=== PATIENT | female | born 1965 | race Caucasian/White ===

== ENCOUNTER 2019-10-14 10:05 | Inpatient (IN) | payer OTHER ==
--- NOTE | 2019-10-14 10:41 | ED ---
General Adult HPI - General Chief complaint: Recheck/Abnormal Lab/Rx Stated complaint: pt states water around heart Time Seen by Provider: 10/14/19 10:26 Source: patient, family, RN notes reviewed Mode of arrival: ambulatory Limitations: no limitations - History of Present Illness Initial comments: Patient is a pleasant 54-year-old female presenting to the emergency department after being advised by her doctor. Patient states she was at her doctor's office and they did an ultrasound of her heart. There was some evidence of fluid around her heart and patient was advised to come to the emergency department. Patient states she has had some mild dyspnea over the past couple of weeks. Patient states it has been very mild and seems to actually be somewhat improving. Patient does have some mild cold symptoms including cough congestion and scratchy throat. Cold symptoms just started yesterday. has similar symptoms. Patient did also have a cold a few months ago. Patient denies any chest discomfort. No leg pain or leg swelling. - Related Data Home Medications Medication Instructions Recorded Confirmed Ibuprofen [Motrin Ib] 400 mg PO Q6H PRN 10/14/19 10/14/19 Allergies Allergy/AdvReac Type Severity Reaction Status Date / Time No Known Allergies Allergy Verified 10/14/19 11:27 Review of Systems ROS Statement: Those systems with pertinent positive or pertinent negative responses have been documented in the HPI. ROS Other: All systems not noted in ROS Statement are negative. Constitutional: Denies: fever, chills Eyes: Denies: eye pain ENT: Reports: as per HPI Respiratory: Reports: as per HPI Cardiovascular: Denies: chest pain Endocrine: Denies: fatigue Gastrointestinal: Denies: abdominal pain Genitourinary: Denies: dysuria Musculoskeletal: Denies: back pain Skin: Denies: rash Neurological: Denies: weakness Past Medical History Past Medical History: No Reported History History of Any Multi-Drug Resistant Organisms: None Reported Past Surgical History: Tonsillectomy Past Psychological History: Depression Smoking Status: Current every day smoker Past Alcohol Use History: None Reported Past Drug Use History: None Reported General Exam Limitations: no limitations General appearance: alert, in no apparent distress Head exam: Present: normocephalic Eye exam: Present: normal appearance, PERRL ENT exam: Present: normal oropharynx Neck exam: Present: normal inspection Respiratory exam: Present: normal lung sounds bilaterally Cardiovascular Exam: Present: regular rate, normal rhythm, normal heart sounds Expanded Peripheral pulses: 2+: Radial (R), Radial (L), Dorsalis Pedis (R), Dorsalis Pedis (L) GI/Abdominal exam: Present: soft. Absent: tenderness Extremities exam: Present: normal inspection. Absent: pedal edema, calf tenderness Neurological exam: Present: alert Psychiatric exam: Present: normal affect, normal mood Skin exam: Present: normal color Course Vital Signs 10/14/19 10:17 Temperature 97.9 F Pulse Rate 105 H Respiratory 20 Rate Blood Pressure 121/83 O2 Sat by Pulse 96 Oximetry EKG Findings - EKG Comments: EKG Findings:: sinus tachycardia at 102. Premature atrial complex. TN 162. QRS 64. QT 308. QTC 401. Normal axis. Low qrs voltage. Nonspecific T waves. Medical Decision Making - Medical Decision Making patient reevaluated and updated. Dr. Flores has been paged for admission. Consult will be placed for cardiology and formal echo will be ordered. - Lab Data Result diagrams: 10/14/19 10:48 10/14/19 10:48 Lab Results 10/14/19 10/14/19 10/14/19 Range/Units 10:48 10:48 10:48 WBC 10.8 H (3.8-10.6) k/uL RBC 4.53 (3.80-5.40) m/uL Hgb 13.1 (11.4-16.0) gm/dL Hct 39.5 (34.0-46.0) % MCV 87.2 (80.0-100.0) fL MCH 28.9 (25.0-35.0) pg MCHC 33.2 (31.0-37.0) g/dL RDW 13.8 (11.5-15.5) % Plt Count 384 (150-450) k/uL Neutrophils % 83 % Lymphocytes % 11 % Monocytes % 4 % Eosinophils % 1 % Basophils % 0 % Neutrophils # 8.9 H (1.3-7.7) k/uL Lymphocytes # 1.2 (1.0-4.8) k/uL Monocytes # 0.5 (0-1.0) k/uL Eosinophils # 0.1 (0-0.7) k/uL Basophils # 0.0 (0-0.2) k/uL PT (9.0-12.0) sec INR (<1.2) APTT (22.0-30.0) sec Sodium 139 (137-145) mmol/L Potassium 3.9 (3.5-5.1) mmol/L Chloride 104 (98-107) mmol/L Carbon Dioxide 27 (22-30) mmol/L Anion Gap 8 mmol/L BUN 9 (7-17) mg/dL Creatinine 0.65 (0.52-1.04) mg/dL Est GFR (CKD-EPI)AfAm >90 (>60 ml/min/1.73 sqM) Est GFR (CKD-EPI)NonAf >90 (>60 ml/min/1.73 sqM) Glucose 123 H (74-99) mg/dL Calcium 9.4 (8.4-10.2) mg/dL Total Bilirubin 1.3 (0.2-1.3) mg/dL AST 20 (14-36) U/L ALT 17 (4-34) U/L Alkaline Phosphatase 116 (38-126) U/L Creatine Kinase 57 (30-135) U/L CK-MB (CK-2) 0.4 (0.0-2.4) ng/mL Troponin I <0.012 (0.000-0.034) ng/mL NT-Pro-B Natriuret Pep pg/mL Total Protein 6.6 (6.3-8.2) g/dL Albumin 3.9 (3.5-5.0) g/dL TSH 8.820 H (0.465-4.680) mIU/L Free T4 0.87 (0.78-2.19) ng/dL Free T3 pg/mL 3.0 (2.8-5.3) pg/ml 10/14/19 10/14/19 Range/Units 10:48 10:48 WBC (3.8-10.6) k/uL RBC (3.80-5.40) m/uL Hgb (11.4-16.0) gm/dL Hct (34.0-46.0) % MCV (80.0-100.0) fL MCH (25.0-35.0) pg MCHC (31.0-37.0) g/dL RDW (11.5-15.5) % Plt Count (150-450) k/uL Neutrophils % % Lymphocytes % % Monocytes % % Eosinophils % % Basophils % % Neutrophils # (1.3-7.7) k/uL Lymphocytes # (1.0-4.8) k/uL Monocytes # (0-1.0) k/uL Eosinophils # (0-0.7) k/uL Basophils # (0-0.2) k/uL PT 11.4 (9.0-12.0) sec INR 1.1 (<1.2) APTT 27.1 (22.0-30.0) sec Sodium (137-145) mmol/L Potassium (3.5-5.1) mmol/L Chloride (98-107) mmol/L Carbon Dioxide (22-30) mmol/L Anion Gap mmol/L BUN (7-17) mg/dL Creatinine (0.52-1.04) mg/dL Est GFR (CKD-EPI)AfAm (>60 ml/min/1.73 sqM) Est GFR (CKD-EPI)NonAf (>60 ml/min/1.73 sqM) Glucose (74-99) mg/dL Calcium (8.4-10.2) mg/dL Total Bilirubin (0.2-1.3) mg/dL AST (14-36) U/L ALT (4-34) U/L Alkaline Phosphatase (38-126) U/L Creatine Kinase (30-135) U/L CK-MB (CK-2) (0.0-2.4) ng/mL Troponin I (0.000-0.034) ng/mL NT-Pro-B Natriuret Pep 432 pg/mL Total Protein (6.3-8.2) g/dL Albumin (3.5-5.0) g/dL TSH (0.465-4.680) mIU/L Free T4 (0.78-2.19) ng/dL Free T3 pg/mL (2.8-5.3) pg/ml - Radiology Data Radiology results: image reviewed (chest x-ray shows cardiomegaly) Disposition Clinical Impression: Pericardial effusion Disposition: ADMITTED IP TO THIS HOSP Is patient prescribed a controlled substance at d/c from ED?: No Referrals: [facility],Clinic [Primary Care Provider] - 1-2 days Decision Time: 12:33
[2019-10-14 11:21] LABS: Basophils % (A) 0 %; Eosinophils # (A) 0.1 k/uL (0-0.7); Eosinophils % (A) 1 %; HCT 39.5 % (34.0-46.0); HGB 13.1 gm/dL (11.4-16.0); Lymphocytes # (A) 1.2 k/uL (1.0-4.8); Lymphocytes % (A) 11 %; MCH 28.9 pg (25.0-35.0); MCHC 33.2 g/dL (31.0-37.0); MCV 87.2 fL (80.0-100.0); Mean Platelet Volume 7.6; Monocytes # (A) 0.5 k/uL (0-1.0); Monocytes % (A) 4 %; Neutrophils # (A) 8.9 k/uL (1.3-7.7); Neutrophils % (A) 83 %; Platelet Count 384 k/uL (150-450); RBC 4.53 m/uL (3.80-5.40); RDW 13.8 % (11.5-15.5); WBC 10.8 k/uL (3.8-10.6)
--- NOTE | 2019-10-14 11:23 | XR ---
EXAMINATION TYPE: XR chest 2V DATE OF EXAM: 10/14/2019 COMPARISON: None INDICATION: Fluid around the heart TECHNIQUE: Frontal and lateral views of the chest are obtained. FINDINGS: The heart size is mildly prominent. Some pericardial effusion could be considered.. The pulmonary vasculature is normal. The lungs are clear. IMPRESSION: 1. Mild cardiomegaly. Pericardial effusion can have this appearance.
[2019-10-14 11:31] LABS: INR 1.1 (<1.2); Partial Thromboplastin Time 27.1 sec (22.0-30.0); Prothrombin Time 11.4 sec (9.0-12.0)
[2019-10-14 11:44] LABS: ALT 17 U/L (4-34); AST 20 U/L (14-36); African American GFR (CKD) >90 (>60 ml/min/1.73 sqM); Albumin 3.9 g/dL (3.5-5.0); Alkaline Phosphatase 116 U/L (38-126); Anion Gap 8 mmol/L; Blood Urea Nitrogen 9 mg/dL (7-17); Calcium 9.4 mg/dL (8.4-10.2); Carbon Dioxide 27 mmol/L (22-30); Chloride 104 mmol/L (98-107); Creatine Kinase 57 U/L (30-135); Glucose 123 mg/dL (74-99); Non-African American GFR(CKD) >90 (>60 ml/min/1.73 sqM); Potassium 3.9 mmol/L (3.5-5.1); Sodium 139 mmol/L (137-145); Total Bilirubin 1.3 mg/dL (0.2-1.3); Total Protein 6.6 g/dL (6.3-8.2)
[2019-10-14 12:01] LABS: T4, Free (Free Thyroxine) 0.87 ng/dL (0.78-2.19)
[2019-10-14 12:04] LABS: Creatine Kinase MB 0.4 ng/mL (0.0-2.4); Troponin I <0.012 ng/mL (0.000-0.034)
[2019-10-14] MEDS ORDERED: ASPIRIN 325 MG TAB PO ONE (13:00)
[2019-10-14] MEDS ORDERED: IOPAMIDOL CONTRAST (ORAL USE) VIAL PO PRN (14:53)
--- NOTE | 2019-10-14 14:53 | ECHOF ---
Referral Reason: MEASUREMENTS -------- HEIGHT: 172.7 cm WEIGHT: 102.1 kg BP: RVIDd: 2.7 cm (< 3.3) IVSd: 1.1 cm (0.6 - 1.1) LVIDd: 3.3 cm (3.9 - 5.3) LVPWd: 1.1 cm (0.6 - 1.1) IVSs: 1.7 cm LVIDs: 2.3 cm LVPWs: 1.8 cm Ao Diam: 3.0 cm (2.0 - 3.7) AV Cusp: 2.0 cm (1.5 - 2.6) LA Diam: 3.5 cm (2.7 - 3.8) MV EXCURSION: 12.885 mm (> 18.000) MV EF SLOPE: 70 mm/s (70 - 150) EPSS: 0.6 cm MV E Mark: 0.52 m/s MV DecT: 161 ms MV A Mark: 0.74 m/s MV E/A Ratio: 0.71 RAP: 5.00 mmHg RVSP: 12.99 mmHg FINDINGS -------- Sinus rhythm. This was a technically difficult study with suboptimal views. The left ventricular size is normal. There is mild concentric left ventricular hypertrophy. Overa ll left ventricular systolic function is normal with, an EF between 55 - 60 %. The right ventricle is normal in size. The left atrial size is normal. The right atrial size is normal. Lumason used The aortic valve is trileaflet and appears structurally normal. The mitral valve is normal. There is trace mitral regurgitation. The tricuspid valve appears structurally normal. Trace tricuspid regurgitation present. Right fabricio tricular systolic pressure is normal at < 35 mmHg. There is no pulmonic regurgitation present. The aortic root size is normal. Normal inferior vena cava with normal inspiratory collapse consistent with estimated right atrial pre ssure of 5 mmHg. Large global pericardial effusion CONCLUSIONS -------- 1. Sinus rhythm. 2. This was a technically difficult study with suboptimal views. 3. The left ventricular size is normal. 4. There is mild concentric left ventricular hypertrophy. 5. Overall left ventricular systolic function is normal with, an EF between 55 - 60 %. 6. The right ventricle is normal in size. 7. The left atrial size is normal. 8. The right atrial size is normal. 9. Lumason used 10. The aortic valve is trileaflet and appears structurally normal. 11. The mitral valve is normal. 12. There is trace mitral regurgitation. 13. The tricuspid valve appears structurally normal. 14. Trace tricuspid regurgitation present. 15. Right ventricular systolic pressure is normal at < 35 mmHg. 16. There is no pulmonic regurgitation present. 17. The aortic root size is normal. 18. Normal inferior vena cava with normal inspiratory collapse consistent with estimated right atrial pressure of 5 mmHg. 19. Large global pericardial effusion MILLING MACHINIST: Melody Escobar RDCS
--- NOTE | 2019-10-14 14:58 | P.CRDCN ---
History of Present Illness Consult date: 10/14/19 Reason for Consult (text): Pericardial effusion Chief complaint: Pericardial effusion History of present illness: To 54-year-old female who has not followed with any primary care doctor in over 15 years, she does smoke cigarettes, up to 2 packs of cigarettes per day, rarely drinks alcohol, she is quite anxious and does have history of panic attacks, denies any hypertension, no diabetes, no hyperlipidemia that she knows of. Patient has recently had some type of a viral illness where she's had frequent diarrhea stools and was complaining of some firmness in her abdomen. She denies any vomiting but has had fever and chills and symptoms of an upper respiratory infection. Associated with this she did have some mild shortness of breath which is why her physician recommended she undergo an echocardiogram with Doppler study as well as an EKG in the office. As an outpatient patient had an echo performed yesterday, she received a call at home that there was some fluid around her heart and she was advised to follow-up in 48 hours for a subsequent echo. The news that this made the patient extremely anxious and for this reason she came to the emergency room almost immediately for further evaluation. Chest x-ray on presentation here showed mild cardiomegaly, pericardial effusion can't have this appearance. Her EKG on presentation here showed a sinus tachycardia with PACs and nonspecific ST-T wave changes. White blood cell count 10.8, hemoglobin 13.1, platelet count 384. Sodium 139, potassium 3.9, BUN 9, creatinine 0.6. Troponin 0.012. BNP 432. TSH is 8.8, free T4 0.8 and free T3.0. blood pressure 120/80 with a heart rate of 105, 96% on room air. Temperature 97.9. At the time of our examination, patient actually feels quite well other than feeling extremely anxious. Any chest discomfort, no pain with deep breathing. Past Medical History Past Medical History: No Reported History History of Any Multi-Drug Resistant Organisms: None Reported Past Surgical History: Tonsillectomy Past Psychological History: Depression Smoking Status: Current every day smoker Past Alcohol Use History: None Reported Past Drug Use History: None Reported Medications and Allergies Home Medications Medication Instructions Recorded Confirmed Type Ibuprofen [Motrin Ib] 400 mg PO Q6H PRN 10/14/19 10/14/19 History Allergies Allergy/AdvReac Type Severity Reaction Status Date / Time No Known Allergies Allergy Verified 10/14/19 11:27 Physical Exam Vitals: Vital Signs Temp Pulse Resp BP Pulse Ox 10/14/19 10:17 97.9 F 105 H 20 121/83 96 Intake and Output 10/13/19 10/14/19 10/14/19 22:59 06:59 14:59 Other: Weight 102.058 kg PHYSICAL EXAMINATION: GENERAL: 54-year-old female in no acute distress at the time of my examination HEENT: Head is atraumatic, normocephalic. Pupils equal, round. Sclera anict jatin. Conjunctiva are clear. Mucous membranes of the mouth are moist. Neck is supple. There is no elevated jugular venous pressure. No Carotid bruit is heard. HEART EXAMINATION: Heart S1, S2 normal. No murmur or gallop heard. No pericardial rub heard CHEST EXAMINATION: Lungs are clear to auscultation and precussion. No chest wall tenderness is noted on palpation or with deep breathing. ABDOMEN: Soft, nontender. Bowel sounds are heard. No organomegaly noted. EXTREMITIES: 2+ peripheral pulses with no evidence of peripheral edema and no calf tenderness noted. NEUROLOGIC patient is awake, alert and oriented 3 . . Results 10/14/19 10:48 10/14/19 10:48 Cardiac Enzymes 10/14/19 10/14/19 Range/Units 10:48 10:48 AST 20 (14-36) U/L CK-MB (CK-2) 0.4 (0.0-2.4) ng/mL Troponin I <0.012 (0.000-0.034) ng/mL Coagulation 10/14/19 Range/Units 10:48 PT 11.4 (9.0-12.0) sec APTT 27.1 (22.0-30.0) sec CBC 10/14/19 Range/Units 10:48 WBC 10.8 H (3.8-10.6) k/uL RBC 4.53 (3.80-5.40) m/uL Hgb 13.1 (11.4-16.0) gm/dL Hct 39.5 (34.0-46.0) % Plt Count 384 (150-450) k/uL Comprehensive Metabolic Panel 10/14/19 Range/Units 10:48 Sodium 139 (137-145) mmol/L Potassium 3.9 (3.5-5.1) mmol/L Chloride 104 (98-107) mmol/L Carbon Dioxide 27 (22-30) mmol/L BUN 9 (7-17) mg/dL Creatinine 0.65 (0.52-1.04) mg/dL Glucose 123 H (74-99) mg/dL Calcium 9.4 (8.4-10.2) mg/dL AST 20 (14-36) U/L ALT 17 (4-34) U/L Alkaline Phosphatase 116 (38-126) U/L Total Protein 6.6 (6.3-8.2) g/dL Albumin 3.9 (3.5-5.0) g/dL Current Medications Generic Name Dose Route Start Last Admin Trade Name Freq PRN Reason Stop Dose Admin Aspirin 325 mg 10/15/19 09:00 Aspirin PO DAILY RUPINDER Intake and Output 10/13/19 10/14/19 10/14/19 22:59 06:59 14:59 Other: Weight 102.058 kg Patient Weight 10/15/19 06:59 Weight 102.058 kg 10/14/19 10:48 10/14/19 10:48 EKG Interpretations (text) EKG shows sinus tachycardia with occasional PAC. Assessment and Plan Plan: Assessment and plan #1 moderate to large pericardial effusion with no evidence of tamponade #2 nicotine dependence #3 recent GI and upper respiratory illness Plan Dr. Beckford did review the echocardiogram here which did reveal a moderate to large pericardial effusion. We will consult cardiothoracic surgery, request a CT of the chest and abdomen with contrast to rule out cancer, obtain CRP, sed rate, coxsackie virus, adenovirus, rheumatoid factor and ALMAS. Patient will be admitted to the cardiac unit. DNP note has been reviewed, I agree with a documented findings and plan of care. Patient was seen and examined.
--- NOTE | 2019-10-14 15:23 | P.HPIM ---
History of Present Illness Patient is a pleasant 54-year-old female with no significant past medical history came in as a PCP did an EKG which showed low-voltage curious compresses 6 because of which an ultrasound of the chest was done which showed pericardial effusion because of which patient was sent in here patient denied any shortness of breath denied any orthopnea proximal nocturnal dyspnea and doesn't have any JVD doesn't have any pedal edema. Patient was having symptoms of upper respiratory viral illness which started about a month ago followed by viral GI symptoms patient is still having symptoms of bronchitis patient does smoke 2 packs of cigarettes per day. She denied any abdominal pain or chest pain. still has low-voltage cares complexes on the EKG patient had an echocardiogram which showed moderate to large pericardial effusion and there are possible septations because of which there is concern of what malignancy although possibly is extremely low CT of the chest is being obtained because of that reason. Patient probably has medical effusion secondary to viral pericarditis. Patient will be started on nonsteroidal anti-intermittent is in colchicine with GI prophylaxis. Review of Systems REVIEW OF SYSTEMS: CONSTITUTIONAL: No fever, no malaise, no fatigue. HEENT: No recent visual problems or hearing problems. Does have symptoms of bronchitis with cough with clear sputum production CARDIOVASCULAR: No chest pain, orthopnea, PND, no palpitations, no syncope. PULMONARY: No shortness of breath, no cough, no hemoptysis. GASTROINTESTINAL: No diarrhea, no nausea, no vomiting, no abdominal pain. NEUROLOGICAL: No headaches, no weakness, no numbness. HEMATOLOGICAL: Denies any bleeding or petechiae. GENITOURINARY: Denies any burning micturition, frequency, or urgency. MUSCULOSKELETAL/RHEUMATOLOGICAL: Denies any joint pain, swelling, or any muscle pain. ENDOCRINE: Denies any polyuria or polydipsia. The rest of the 14-point review of systems is negative. Past Medical History Past Medical History: No Reported History History of Any Multi-Drug Resistant Organisms: None Reported Past Surgical History: Tonsillectomy Past Psychological History: Depression Smoking Status: Current every day smoker Past Alcohol Use History: None Reported Past Drug Use History: None Reported Medications and Allergies Home Medications Medication Instructions Recorded Confirmed Type Ibuprofen [Motrin Ib] 400 mg PO Q6H PRN 10/14/19 10/14/19 History Allergies Allergy/AdvReac Type Severity Reaction Status Date / Time No Known Allergies Allergy Verified 10/14/19 11:27 Physical Exam Vitals: Vital Signs Temp Pulse Resp BP Pulse Ox 10/14/19 14:00 80 18 123/92 10/14/19 13:00 80 18 108/83 97 10/14/19 12:03 80 18 97 10/14/19 10:17 97.9 F 105 H 20 121/83 96 Intake and Output 10/14/19 10/14/19 10/14/19 06:59 14:59 22:59 Other: Weight 102.058 kg PHYSICAL EXAMINATION: GENERAL: The patient is alert and oriented x3, not in any acute distress. Well developed, well nourished. HEENT: Pupils are round and equally reacting to light. EOMI. No scleral icterus. No conjunctival pallor. Normocephalic, atraumatic. No pharyngeal erythema. No thyromegaly. CARDIOVASCULAR: S1 and S2 present. No murmurs, rubs, or gallops. PULMONARY: Chest is clear to auscultation, no wheezing or crackles. ABDOMEN: Soft, nontender, nondistended, normoactive bowel sounds. No palpable organomegaly. MUSCULOSKELETAL: No joint swelling or deformity. EXTREMITIES: No cyanosis, clubbing, or pedal edema. NEUROLOGICAL: Gross neurological examination did not reveal any focal deficits. SKIN: No rashes. Results CBC & Chem 7: 10/14/19 10:48 10/14/19 10:48 Labs: Abnormal Lab Results - Last 24 Hours (Table) 10/14/19 10/14/19 Range/Units 10:48 10:48 WBC 10.8 H (3.8-10.6) k/uL Neutrophils # 8.9 H (1.3-7.7) k/uL Glucose 123 H (74-99) mg/dL TSH 8.820 H (0.465-4.680) mIU/L Assessment and Plan Plan: -Large regarding effusion: Most probably viral etiology but may need to rule out any malignancy in the chest with a CAT scan of the chest. Possibly of which is lower patient was started on nonsteroidal anti-inflammatory send the colchicine. Urology's for coxsackievirus is being sent and we're also obtaining CRP and ESR. -Nicotine dependence also was provided -Recent upper respiratory and GI illness. -Leukocytosis: Secondary to pericardial effusion and viral pericarditis -Sick euthyroid syndrome or subclinical hypothyroidism repeat TSH need to be obtained in about a month
[2019-10-14 15:49] LABS: C Reactive Protein 58.9 mg/L (<10.0)
--- NOTE | 2019-10-14 15:49 | P.GSCN ---
History of Present Illness Consult date: 10/14/19 Reason for Consult: Large pericardial effusion without tamponade physiology Requesting physician: Radha Beckford History of present illness: This is a 54-year-old active female patient who does not follow with a primary care physician on a regular basis. Her only known previous medical history is anxiety with panic attacks, tonsillectomy, and current tobacco dependence. Apparently she had what she describes as cold-type symptoms of cough, congestion, fever and chills, and shortness of breath recently. She started to feel better but then had GI type symptoms including abdominal pain and diarrhea. She did see a physician at the [facility], an echocardiogram was completed at the clinic due to the patient's shortness of breath, and the patient received a call yesterday stating there is fluid around her heart and she "should report to the emergency room in the next couple of days". While in the emergency room a transthoracic echocardiogram was completed demonstrating a large pericardial effusion with no tamponade physiology, ejection fraction 55-60%, trace mitral regurgitation and trace tricuspid regurgitation. Lab work was unremarkable except for white blood cell count 10.8 and TSH 8.820 with a free T4 0.87 and free T3 3.0. Chest x-ray was completed showing cardiomegaly. EKG showed sinus tach with heart rate 102, with low voltage. The patient was seen by cardiology and will be admitted for further workup. CT of the chest and abdomen have been ordered and are pending. Consultation was placed to cardiothoracic surgery for recommendations regarding pericardial effusion. Review of Systems Review of system was completed and was negative except as noted - Constitutional Reports chills, Reports fever - Cardiovascular Reports shortness of breath - Gastrointestinal Reports abdominal pain, Reports diarrhea, Reports excessive gas Past Medical History Past Medical History: No Reported History History of Any Multi-Drug Resistant Organisms: None Reported Past Surgical History: Tonsillectomy Past Psychological History: Anxiety, Depression Smoking Status: Current every day smoker Past Alcohol Use History: None Reported Past Drug Use History: None Reported Medications and Allergies Home Medications Medication Instructions Recorded Confirmed Type Ibuprofen [Motrin Ib] 400 mg PO Q6H PRN 10/14/19 10/14/19 History Allergies Allergy/AdvReac Type Severity Reaction Status Date / Time No Known Allergies Allergy Verified 10/14/19 11:27 Surgical - Exam Vital Signs Temp Pulse Resp BP Pulse Ox 97.9 F 105 H 20 121/83 96 10/14/19 10:17 10/14/19 10:17 10/14/19 10:17 10/14/19 10:17 10/14/19 10:17 - General well developed, well nourished, no distress, no pain, obese - Eyes PERRL, normal ocular movement - ENT no hearing loss - Neck no masses, no bruits, trachea midline - Respiratory Lungs sounds clear but diminished bilaterally. Respirations even, nonlabored. Currently on room air with oxygen saturation 97%. No chest wall deformities. No clubbing or cyanosis. - Cardiovascular S1, S2 present, no rub present, no distant heart tones noted. Regular rate and rhythm, sinus rhythm on telemetry. Palpable peripheral pulses bilaterally. No edema present. No calf pain or tenderness noted. - Abdomen Abdomen: soft, non tender, bowel sounds - Genitourinary Deferred - Rectum deferred - Integumentary no rash, no growths, no abnormal pigmentation - Neurologic normal coordination, normal sensation - Musculoskeletal normal gait, normal posture - Psychiatric Patient appears very anxious oriented to time, oriented to person, oriented to place, speech is normal, memory intact Results - Labs 10/14/19 10:48 10/14/19 10:48 Abnormal Lab Results - Last 24 Hours (Table) 10/14/19 10/14/19 Range/Units 10:48 10:48 WBC 10.8 H (3.8-10.6) k/uL Neutrophils # 8.9 H (1.3-7.7) k/uL Glucose 123 H (74-99) mg/dL TSH 8.820 H (0.465-4.680) mIU/L Diabetes panel 10/14/19 Range/Units 10:48 Sodium 139 (137-145) mmol/L Potassium 3.9 (3.5-5.1) mmol/L Chloride 104 (98-107) mmol/L Carbon Dioxide 27 (22-30) mmol/L BUN 9 (7-17) mg/dL Creatinine 0.65 (0.52-1.04) mg/dL Glucose 123 H (74-99) mg/dL Calcium 9.4 (8.4-10.2) mg/dL AST 20 (14-36) U/L ALT 17 (4-34) U/L Alkaline Phosphatase 116 (38-126) U/L Total Protein 6.6 (6.3-8.2) g/dL Albumin 3.9 (3.5-5.0) g/dL Thyroid panel 10/14/19 Range/Units 10:48 TSH 8.820 H (0.465-4.680) mIU/L Calcium panel 10/14/19 Range/Units 10:48 Calcium 9.4 (8.4-10.2) mg/dL Albumin 3.9 (3.5-5.0) g/dL Pituitary panel 10/14/19 Range/Units 10:48 Sodium 139 (137-145) mmol/L Potassium 3.9 (3.5-5.1) mmol/L Chloride 104 (98-107) mmol/L Carbon Dioxide 27 (22-30) mmol/L BUN 9 (7-17) mg/dL Creatinine 0.65 (0.52-1.04) mg/dL Glucose 123 H (74-99) mg/dL Calcium 9.4 (8.4-10.2) mg/dL TSH 8.820 H (0.465-4.680) mIU/L Adrenal panel 10/14/19 Range/Units 10:48 Sodium 139 (137-145) mmol/L Potassium 3.9 (3.5-5.1) mmol/L Chloride 104 (98-107) mmol/L Carbon Dioxide 27 (22-30) mmol/L BUN 9 (7-17) mg/dL Creatinine 0.65 (0.52-1.04) mg/dL Glucose 123 H (74-99) mg/dL Calcium 9.4 (8.4-10.2) mg/dL Total Bilirubin 1.3 (0.2-1.3) mg/dL AST 20 (14-36) U/L ALT 17 (4-34) U/L Alkaline Phosphatase 116 (38-126) U/L Total Protein 6.6 (6.3-8.2) g/dL Albumin 3.9 (3.5-5.0) g/dL - Imaging Chest x-ray: report reviewed, image reviewed EKG: image reviewed Additional studies: Echo report reviewed Assessment and Plan Assessment: 1. Large pericardial effusion 2. Current tobacco dependence 3. Anxiety 4. Recent upper respiratory symptoms as well as GI symptoms Plan: The patient was seen and examined in the emergency room. Chart/diagnostics were reviewed. The case will be discussed in detail with Dr. Miller. At this time the patient is completely stable, she has no tachycardia or hypotension, no distant heart tones. Her lab work is unremarkable. She denies any chest pain and states her shortness of breath has all but disappeared, she does not appear to be in any distress whatsoever. Await CT of chest and abdomen. Agree with initiation of ibuprofen and colchicine. More recommendations to follow once Dr. Miller has seen the patient. Thank you Dr. Beckford for this consult. We look forward to working with you in the care of your patient. Time with Patient: Greater than 30
[2019-10-14] MEDS: PANTOPRAZOLE 40 MG/10 ML VIAL IVP SCH (17:05)
[2019-10-14] MEDS: IBUPROFEN 600 MG TAB PO SCH ×2 (17:06→20:21)
[2019-10-14] MEDS: COLCHICINE 0.6 MG EACH PO SCH (20:21)
[2019-10-15 06:44] LABS: HCT 35.9 % (34.0-46.0); HGB 11.9 gm/dL (11.4-16.0); MCH 29.8 pg (25.0-35.0); MCHC 33.3 g/dL (31.0-37.0); MCV 89.4 fL (80.0-100.0); Mean Platelet Volume 7.2; Platelet Count 334 k/uL (150-450); RBC 4.01 m/uL (3.80-5.40); RDW 13.9 % (11.5-15.5); WBC 7.3 k/uL (3.8-10.6)
[2019-10-15 06:56] LABS: African American GFR (CKD) >90 (>60 ml/min/1.73 sqM); Anion Gap 5 mmol/L; Blood Urea Nitrogen 7 mg/dL (7-17); Calcium 8.9 mg/dL (8.4-10.2); Carbon Dioxide 28 mmol/L (22-30); Chloride 107 mmol/L (98-107); Cholesterol 115 mg/dL (<200); Glucose 102 mg/dL (74-99); HDL Cholesterol 29 mg/dL (40-60); LDL Cholesterol,Calculated 73 mg/dL (0-99); Non-African American GFR(CKD) >90 (>60 ml/min/1.73 sqM); Potassium 3.8 mmol/L (3.5-5.1); Sodium 140 mmol/L (137-145); Triglycerides 66 mg/dL (<150)
[2019-10-15] MEDS ORDERED: IOPAMIDOL CONTRAST (ORAL USE) VIAL PO PRN (08:00)
[2019-10-15] MEDS: IBUPROFEN 600 MG TAB PO SCH ×2 (08:10→15:23)
[2019-10-15] MEDS: COLCHICINE 0.6 MG EACH PO SCH (08:10)
[2019-10-15] MEDS: PANTOPRAZOLE 40 MG/10 ML VIAL IVP SCH (08:11)
[2019-10-15] MEDS ORDERED: ASPIRIN 325 MG TAB PO SCH (09:00)
--- NOTE | 2019-10-15 09:49 | P.PN ---
Subjective Progress Note Date: 10/15/19 Principal diagnosis: Large pericardial effusion. Past medical history significant for anxiety, current chronic tobacco dependence, recent upper torso respiratory symptoms as well as GI symptoms. This is a 54-year-old female patient who does not follow with her primary care physician on a regular basis. She presented to the emergency department yesterday after she received a call from her physician's office saying that her 2-D echocardiogram she underwent the day prior showed water around her heart. The patient is ambulating currently in her room on the cardiac stepdown unit, and she is in no acute distress. She remains hemodynamically stable and is on no inotropic or pressor support. Denies any complaints of pain or shortness of breath at this time. She is anxious to be discharged home. The patient is scheduled for a computed tomography scan of her chest, abdomen and pelvis this morning. She states that recently she has had flulike symptoms but had felt lik e she had recovered prior to being admitted to the hospital. Objective - Vital Signs Vital signs: Vital Signs Temp 98.2 F 10/15/19 04:00 Pulse 79 10/15/19 04:00 Resp 18 10/15/19 04:00 BP 106/59 10/15/19 04:00 Pulse Ox 91 L 10/15/19 04:00 Intake & Output 10/14/19 10/15/19 10/15/19 18:59 06:59 18:59 Intake Total 10 200 360 Balance 10 200 360 Weight 102.058 kg 103.4 kg Intake: IV 10 Invasive Line 1 10 Oral 200 360 Other: Voiding Method Toilet - Constitutional General appearance: Present: cooperative, no acute distress, obese - Neck Details: No JVD present. - Respiratory Details: Lung sounds are essentially clear throughout. Respirations are symmetrical and nonlabored. Oxygen saturation are 91% on room air. - Cardiovascular Details: Regular rhythm and rate. S1 and S2 present, negative for S3, gallop or murmur. Remote telemetry showing normal sinus rhythm heart rate 79. No edema present. - Gastrointestinal Gastrointestinal Comment(s): Abdomen is soft, nontender and nondistended. Active bowel sounds present all 4 abdominal quadrants. No organomegaly appreciated. - Integumentary Integumentary Comment(s): Skin is warm and dry. No clubbing or cyanosis is present. No rash, growth or abnormal pigmentation present. - Neurologic Neurologic: Present: CNII-XII intact - Musculoskeletal Musculoskeletal: Present: gait normal, strength equal bilaterally - Psychiatric Psychiatric: Present: A&O x's 3, appropriate affect, intact judgment & insight - Allied health notes Allied health notes reviewed: nursing - Labs CBC & Chem 7: 10/15/19 06:17 10/15/19 06:17 Labs: Abnormal Lab Results - Last 24 Hours (Table) 10/14/19 10/14/19 10/14/19 Range/Units 10:48 10:48 15:11 WBC 10.8 H (3.8-10.6) k/uL Neutrophils # 8.9 H (1.3-7.7) k/uL Glucose 123 H (74-99) mg/dL C-Reactive Protein 58.9 H (<10.0) mg/L HDL Cholesterol (40-60) mg/dL TSH 8.820 H (0.465-4.680) mIU/L 10/15/19 Range/Units 06:17 WBC (3.8-10.6) k/uL Neutrophils # (1.3-7.7) k/uL Glucose 102 H (74-99) mg/dL C-Reactive Protein (<10.0) mg/L HDL Cholesterol 29 L (40-60) mg/dL TSH (0.465-4.680) mIU/L Assessment and Plan Assessment: 1. Moderate to large pericardial effusion 2. Leukocytosis 3. Anxiety, with panic attacks 4. Recent upper respiratory symptoms as well as GI symptoms 5. Current tobacco dependence Plan: 1. Continue colchicine and ibuprofen. No surgical intervention is planned this time. 2. Computed tomography scan of her chest, abdomen and pelvis pending. We will follow the results. 3. Encourage activity as tolerated. 4. The importance of smoking cessation was discussed with the patient. 5. Medical management and other comorbidities per primary care service. 6. More recommendations to follow based on patient's clinical course. Time with Patient: Greater than 30
--- NOTE | 2019-10-15 10:29 | CT ---
EXAMINATION TYPE: CT ChestAbdPelvis w con DATE OF EXAM: 10/15/2019 COMPARISON: NONE HISTORY: Pericardial effusion CT DLP: 1919 mGycm Automated exposure control for dose reduction was used. TECHNIQUE: Helical acquisition through the abdomen and pelvis was obtained without oral contrast but following the intravenous administration of 100 ml mL of Isovue 300. The data was formatted in the a xial, coronal and sagittal projections. FINDINGS: The lungs are clear. There is no significant axillary, internal mammary, mediastinal or hilar adenopathy. There is a large pericardial effusion which is up to 3.1 mm in thickness. The heart is not otherwise enlarged. There is minimal pleural fluid present bilaterally. Within the abdomen, the liver is normal in size. There is a 1.7 cm low attenuating lesion in the ante rior segment of the right lobe of the liver. This has a Hounsfield density of 6.6 and likely represen ts a simple cyst. The spleen is unremarkable. There is a 1.8 cm gallstone within the gallbladder. Both adrenal glands are normal. Both kidneys demonstrate function and appear morphologically normal. The pancreas is unremarkable. There is no significant retroperitoneal, iliac or inguinal adenopathy. The uterus and ovaries are normal. The bladder wall is slightly thickened. This may be due to lack of distention. There is no significant diverticular change and there is no radiographic evidence of diverticulitis. The appendix is unremarkable. Ileocecal valve is fatty replaced. Small bowel loops are of normal caliber. There is facet arthropathy in the lower lumbar spine. There is hypertrophic spondylosis in the lower dorsal spine. IMPRESSION: 1. LARGE PERICARDIAL EFFUSION. 2. CHOLELITHIASIS. 3. PROBABLE HEPATIC CYST. 4. MILD DEGENERATIVE CHANGES WITHIN THE SPINE.
--- NOTE | 2019-10-15 11:03 | P.DS ---
Providers Date of admission: 10/14/19 12:35 Attending physician: Anderson Flores Consults: 10/14/19 12:33 Consult Physician Urgent Consulting Provider: Gerard Tinoco Consult Reason/Comments: pericardial effusion Do you want consulting provider notified?: Yes 10/14/19 14:52 Consult Physician Urgent Consulting Provider: Donovan Mckee Consult Reason/Comments: pericardial effusion Do you want consulting provider notified?: Yes Primary care physician: [facility] Course: Patient is a pleasant 54-year-old female with no significant past medical history came in as a PCP did an EKG which showed low-voltage curious compresses 6 because of which an ultrasound of the chest was done which showed pericardial effusion because of which patient was sent in here patient denied any shortness of breath denied any orthopnea proximal nocturnal dyspnea and doesn't have any JVD doesn't have any pedal edema. Patient was having symptoms of upper respiratory viral illness which started about a month ago followed by viral GI symptoms patient is still having symptoms of bronchitis patient does smoke 2 packs of cigarettes per day. She denied any abdominal pain or chest pain. still has low-voltage QRS complexes on the EKG patient had an echocardiogram which showed moderate to large pericardial effusion and there are possible septations because of which there is concern of what malignancy alth ough possibly is extremely low CT of the chest is being obtained because of that reason. Patient probably has medical effusion secondary to viral pericarditis. Patient will be started on nonsteroidal anti-intermittent is in colchicine with GI prophylaxis. 10/15/2019 Patient was a valid by carotid thoracic surgery no surgical intervention is being planned patient is hemodynamically stable doesn't have any symptoms from her large pericardial effusion. Carotid thoracic surgery recommending 24-hour monitoring which will be under later today after that patient will be discharged on 2 weeks of ibuprofen in a month of colchicine. I do present can be tapered down after 2 weeks. Patient will follow up closely with cardiology and cardiovascular thoracic surgery in 2 weeks and patient will need a repeat echocardiogram at that time. Patient had a CAT scan of the chest which did not show any other malignant lesions but there is an incidental finding of the cholelithiasis for which patient will be referred to Gen. surgery and patient doesn't have any symptoms for from gallstones. PHYSICAL EXAMINATION: GENERAL: The patient is alert and oriented x3, not in any acute distress. Well developed, well nourished. HEENT: Pupils are round and equally reacting to light. EOMI. No scleral icterus. No conjunctival pallor. Normocephalic, atraumatic. No pharyngeal erythema. No thyromegaly. CARDIOVASCULAR: S1 and S2 present. No murmurs, rubs, or gallops. PULMONARY: Chest is clear to auscultation, no wheezing or crackles. ABDOMEN: Soft, nontender, nondistended, normoactive bowel sounds. No palpable organomegaly. MUSCULOSKELETAL: No joint swelling or deformity. EXTREMITIES: No cyanosis, clubbing, or pedal edema. NEUROLOGICAL: Gross neurological examination did not reveal any focal deficits. SKIN: No rashes. Assessment and Plan Plan: -Large regarding effusion: Most probably viral etiology but no evidence of malignancy in the chest, showed incidental finding of cholelithiasis. Patient had elevated ESR coxsackievirus serology is pending -Nicotine dependence also was provided -Recent upper respiratory and GI illness. -Leukocytosis: Secondary to pericardial effusion and viral pericarditis -Sick euthyroid syndrome or subclinical hypothyroidism repeat TSH need to be obtained in about a month Plan - Discharge Summary Discharge Rx Participant: Yes New Discharge Prescriptions: New Colchicine [Colcrys] 0.6 mg PO BID #60 each Ibuprofen [Motrin] 600 mg PO TID #42 tab Famotidine [Pepcid] 20 mg PO BID #30 tablet Discontinued Ibuprofen [Motrin Ib] 400 mg PO Q6H PRN PRN Reason: Pain Discharge Medication List Colchicine [Colcrys] 0.6 mg PO BID #60 each 10/15/19 [Rx] Famotidine [Pepcid] 20 mg PO BID #30 tablet 10/15/19 [Rx] Ibuprofen [Motrin] 600 mg PO TID #42 tab 10/15/19 [Rx] Follow up Appointment(s)/Referral(s): Napoleon Smart MD [Medical Doctor] - 2 Weeks Gil Miller MD [STAFF PHYSICIAN] - 2 Weeks Radha Beckford MD [STAFF PHYSICIAN] - 1 Week [facility] [Primary Care Provider] - 3 Days Patient Instructions/Handouts: Pericardial Effusion (DC) Discharge Disposition: HOME SELF-CARE
--- NOTE | 2019-10-15 12:47 | P.PN ---
Subjective This is a pleasant 54-year-old female past medical history significant for chronic nicotine dependence. She is currently being treated for a sizable pericardial effusion secondary to viral illness. She is seen and examined up ambulating around the room with her at the bedside. She denies symptoms of shortness of breath, chest pain, dizziness or palpitations. She has been seen in evaluation by CT surgery and they recommended maximal medical therapy or surgical intervention at this time. Blood pressure 129/69 heart rate 79 afebrile maintaining oxygen saturation on room air. Laboratory data reviewed, WBC 7.3, hemoglobin 11.9, platelets 334, sodium 140, potassium 3.8, creatinine 0.58, TSH 8.82, LDL 73, CRP 58.[address] rate [address] of the abdomen and pelvis reveals a large pericardial effusion, cholelithiasis and a probable hepatic cyst. Echocardiogram reveals preserved LV systolic function with ejection fraction 55-60% with a large global pericardial effusion. Currently maintained on colchicine and ibuprofen. GENERAL: Well-appearing, well-nourished and in no acute distress. NECK: Supple without JVD or thyromegaly. LUNGS: Breath sounds clear to auscultation bilaterally. Respiration equal and unlabored. No wheezes, rales or rhonchi. HEART: Regular rate and rhythm without murmurs, rubs or gallops. S1 and S2 heard. EXTREMITIES: Normal range of motion, no edema. No clubbing or cyanosis. Periphe ral pulses intact. ASSESSMENT Pericardial effusion Recent viral illness Chronic nicotine dependence PLAN Continue current medical regimen. Follow-up in the office with Dr. Camargo next week. Smoking cessation strongly recommended. Nurse Practitioner note has been reviewed, I agree with a documented findings and plan of care. Patient was seen and examined. Objective - Vital Signs Vital signs: Vital Signs Temp 97.7 F 10/15/19 08:00 Pulse 79 10/15/19 08:00 Resp 18 10/15/19 08:00 BP 129/69 10/15/19 08:00 Pulse Ox 94 L 10/15/19 08:00 Intake & Output 10/14/19 10/15/19 10/15/19 18:59 06:59 18:59 Intake Total 10 200 360 Balance 10 200 360 Weight 102.058 kg 103.4 kg Intake: IV 10 Invasive Line 1 10 Oral 200 360 Other: Voiding Method Toilet Toilet - Labs CBC & Chem 7: 10/15/19 06:17 10/15/19 06:17 Labs: Abnormal Lab Results - Last 24 Hours (Table) 10/14/19 10/14/19 10/15/19 Range/Units 10:48 15:11 06:17 Glucose 123 H 102 H (74-99) mg/dL C-Reactive Protein 58.9 H (<10.0) mg/L HDL Cholesterol 29 L (40-60) mg/dL TSH 8.820 H (0.465-4.680) mIU/L
[2019-10-15 15:46] VITALS: BP 129/84; PULSE 67; RESP 16; TEMP 97.5
[2019-10-16] MEDS ORDERED: PANTOPRAZOLE 40 MG TABLET PO SCH (09:00)
== END 2019-10-15 17:55 | disposition home or self-care (01) | DRG 316 ==
LOC: EC 10:05 → 3SCARD 12:35
PROVIDERS: ADMIT Hospitalist; ATTEND Hospitalist
DX: I30.1 Infective pericarditis (principal); K76.89 Other specified diseases of liver; B97.89 Other viral agents as the cause of diseases classified elsewhere; K80.20 Calculus of gallbladder without cholecystitis without obstruction; E07.81 Sick-euthyroid syndrome; E03.9 Hypothyroidism, unspecified; F41.0 Panic disorder [episodic paroxysmal anxiety]; F17.210 Nicotine dependence, cigarettes, uncomplicated; Z71.6 Tobacco abuse counseling; Z98.890 Other specified postprocedural states; Z86.59 Personal history of other mental and behavioral disorders; J00 Acute nasopharyngitis [common cold]
CPT/HCPCS: 36415; 71046; 71260; 74177; 80048; 80053; 80061; 82550; 82553; 83880; 84439; 84443; 84481; 84484; 85025; 85027; 85610; 85652; 85730; 86038; 86140; 86431; 86658; 87040; 93005; 93306; 99284

== ENCOUNTER → 2019-10-31 | Outpatient (CLI) | payer OTHER ==
--- NOTE | 2019-11-01 12:00 | ECHOF ---
Referral Reason:I31.3 Pericardial effusion (noninflammatory) MEASUREMENTS -------- HEIGHT: 172.7 cm WEIGHT: 99.8 kg BP: 156/100 RVIDd: 3.0 cm (< 3.3) IVSd: 1.2 cm (0.6 - 1.1) LVIDd: 3.5 cm (3.9 - 5.3) LVPWd: 1.0 cm (0.6 - 1.1) IVSs: 1.6 cm LVIDs: 2.4 cm LVPWs: 1.6 cm LA Diam: 3.2 cm (2.7 - 3.8) Ao Diam: 3.2 cm (2.0 - 3.7) AV Cusp: 2.1 cm (1.5 - 2.6) MV EXCURSION: 15.249 mm (> 18.000) MV EF SLOPE: 37 mm/s (70 - 150) EPSS: 0.3 cm MV E Mark: 0.69 m/s MV DecT: 339 ms MV A Mark: 0.91 m/s MV E/A Ratio: 0.77 FINDINGS -------- Sinus rhythm. This was a technically adequate study. The left ventricular size is normal. There is borderline concentric left ventricular hypertrophy. Overall left ventricular systolic function is normal with, an EF between 60 - 65 %. The right ventricle is normal in size. The left atrial size is normal. The right atrium is normal in size. Interatrial and interventricular septum intact. The aortic valve is trileaflet and appears structurally normal. The mitral valve is normal. The tricuspid valve appears structurally normal. There is no pulmonic regurgitation present. The aortic root size is normal. Normal inferior vena cava with normal inspiratory collapse consistent with estimated right atrial pre ssure of 5 mmHg. The inferior vena cava is mildly dilated. There is a large, generalized pericardial effusion present. CONCLUSIONS -------- 1. Sinus rhythm. 2. This was a technically adequate study. 3. The left ventricular size is normal. 4. There is borderline concentric left ventricular hypertrophy. 5. Overall left ventricular systolic function is normal with, an EF between 60 - 65 %. 6. The right ventricle is normal in size. 7. The left atrial size is normal. 8. The right atrium is normal in size. 9. Interatrial and interventricular septum intact. 10. The aortic valve is trileaflet and appears structurally normal. 11. The mitral valve is normal. 12. The tricuspid valve appears structurally normal. 13. There is no pulmonic regurgitation present. 14. The aortic root size is normal. 15. Normal inferior vena cava with normal inspiratory collapse consistent with estimated right atrial pressure of 5 mmHg. 16. The inferior vena cava is mildly dilated. 17. There is a large, generalized pericardial effusion present. TRAINING PROJECT MANAGER: Katelynn Betancur RDCS
== END | disposition home or self-care (01) ==
LOC: RADECHMAIN 13:52
PROVIDERS: ATTEND Thoracic Surgery (Cardiothoracic Vascular Surgery)
DX: I31.3 Pericardial effusion (noninflammatory) (principal); I51.7 Cardiomegaly
CPT/HCPCS: 93306

== ENCOUNTER → 2019-11-25 | Outpatient (CLI) | payer OTHER ==
--- NOTE | 2019-11-25 13:00 | ECHOF ---
Referral Reason:I31.3 pericardial effusion MEASUREMENTS -------- HEIGHT: 170.2 cm WEIGHT: 96.6 kg BP: RVIDd: 2.7 cm (< 3.3) IVSd: 1.3 cm (0.6 - 1.1) LVIDd: 3.8 cm (3.9 - 5.3) LVPWd: 1.6 cm (0.6 - 1.1) IVSs: 1.6 cm LVIDs: 2.2 cm LVPWs: 1.9 cm Ao Diam: 3.0 cm (2.0 - 3.7) AV Cusp: 1.9 cm (1.5 - 2.6) LA Diam: 3.5 cm (2.7 - 3.8) MV EXCURSION: 16.226 mm (> 18.000) MV EF SLOPE: 52 mm/s (70 - 150) EPSS: 0.4 cm MV E Mark: 0.76 m/s MV DecT: 190 ms MV A Mark: 0.94 m/s MV E/A Ratio: 0.81 RAP: 5.00 mmHg RVSP: 15.61 mmHg FINDINGS -------- Sinus rhythm. This was a technically adequate study. The left ventricular size is normal. There is moderate concentric left ventricular hypertrophy. O verall left ventricular systolic function is normal with, an EF between 55 - 60 %. The right ventricle is normal in size. The left atrial size is normal. The right atrial size is normal. The aortic valve is trileaflet and appears structurally normal. The mitral valve is normal. There is trace mitral regurgitation. The tricuspid valve appears structurally normal. Trace tricuspid regurgitation present. Right fabricio tricular systolic pressure is normal at < 35 mmHg. There is no pulmonic regurgitation present. The aortic root size is normal. Normal inferior vena cava with normal inspiratory collapse consistent with estimated right atrial pre ssure of 5 mmHg. There is a moderate, generalized pericardial effusion present.There is improvement compared to the la st study CONCLUSIONS -------- 1. Sinus rhythm. 2. This was a technically adequate study. 3. The left ventricular size is normal. 4. There is moderate concentric left ventricular hypertrophy. 5. Overall left ventricular systolic function is normal with, an EF between 55 - 60 %. 6. The right ventricle is normal in size. 7. The left atrial size is normal. 8. The right atrial size is normal. 9. The aortic valve is trileaflet and appears structurally normal. 10. The mitral valve is normal. 11. There is trace mitral regurgitation. 12. The tricuspid valve appears structurally normal. 13. Trace tricuspid regurgitation present. 14. Right ventricular systolic pressure is normal at < 35 mmHg. 15. There is no pulmonic regurgitation present. 16. The aortic root size is normal. 17. Normal inferior vena cava with normal inspiratory collapse consistent with estimated right atrial pressure of 5 mmHg. 18. There is a moderate, generalized pericardial effusion present. TEACHING SPECIALISTS: Melody Escobar RDCS
== END | disposition home or self-care (01) ==
LOC: RADECHMAIN 11:14
PROVIDERS: ATTEND Thoracic Surgery (Cardiothoracic Vascular Surgery)
DX: I51.7 Cardiomegaly (principal)
CPT/HCPCS: 93306

== ENCOUNTER → 2020-03-05 | Outpatient (CLI) | payer OTHER ==
--- NOTE | 2020-03-06 10:09 | ECHOF ---
Referral Reason:I31.3 Pericardial effusion (noninflammatory) MEASUREMENTS -------- HEIGHT: 172.7 cm WEIGHT: 95.3 kg BP: RVIDd: 3.0 cm (< 3.3) IVSd: 1.0 cm (0.6 - 1.1) LVIDd: 3.7 cm (3.9 - 5.3) LVPWd: 1.4 cm (0.6 - 1.1) IVSs: 1.6 cm LVIDs: 1.8 cm LVPWs: 1.7 cm Ao Diam: 3.1 cm (2.0 - 3.7) AV Cusp: 2.0 cm (1.5 - 2.6) LA Diam: 2.7 cm (2.7 - 3.8) MV EXCURSION: 9.024 mm (> 18.000) MV EF SLOPE: 73 mm/s (70 - 150) EPSS: 1.2 cm MV E Mark: 0.93 m/s MV DecT: 194 ms MV A Mark: 0.84 m/s MV E/A Ratio: 1.11 RAP: 5.00 mmHg RVSP: 18.74 mmHg FINDINGS -------- Sinus rhythm. This was a technically adequate study. The left ventricular size is normal. There is mild concentric left ventricular hypertrophy. Overa ll left ventricular systolic function is normal with, an EF between 55 - 60 %. The right ventricle is normal in size. The left atrial size is normal. The right atrial size is normal. The aortic valve is trileaflet and appears structurally normal. The mitral valve is normal. There is trace mitral regurgitation. The tricuspid valve appears structurally normal. Trace tricuspid regurgitation present. Right fabricio tricular systolic pressure is normal at < 35 mmHg. There is no pulmonic regurgitation present. The aortic root size is normal. Normal inferior vena cava with normal inspiratory collapse consistent with estimated right atrial pre ssure of 5 mmHg. There is a small, generalized pericardial effusion present. CONCLUSIONS -------- 1. Sinus rhythm. 2. This was a technically adequate study. 3. The left ventricular size is normal. 4. There is mild concentric left ventricular hypertrophy. 5. Overall left ventricular systolic function is normal with, an EF between 55 - 60 %. 6. The right ventricle is normal in size. 7. The left atrial size is normal. 8. The right atrial size is normal. 9. The aortic valve is trileaflet and appears structurally normal. 10. The mitral valve is normal. 11. There is trace mitral regurgitation. 12. The tricuspid valve appears structurally normal. 13. Trace tricuspid regurgitation present. 14. Right ventricular systolic pressure is normal at < 35 mmHg. 15. There is no pulmonic regurgitation present. 16. The aortic root size is normal. 17. Normal inferior vena cava with normal inspiratory collapse consistent with estimated right atrial pressure of 5 mmHg. 18. There is a small, generalized pericardial effusion present. STACK SUPERVISOR: Melody Escobar RDCS
== END | disposition home or self-care (01) ==
LOC: RADECHMAIN 11:30
PROVIDERS: ATTEND Thoracic Surgery (Cardiothoracic Vascular Surgery)
DX: I08.1 Rheumatic disorders of both mitral and tricuspid valves (principal); I51.7 Cardiomegaly
CPT/HCPCS: 93306

== ENCOUNTER → 2022-09-19 | Outpatient (CLI) | payer OTHER ==
--- NOTE | 2022-09-19 14:54 | CTL ---
EXAMINATION TYPE: CT Low Dose Lung DATE OF EXAM ORDERED: 09/19/2022 HISTORY: Lung cancer screening CT DLP: 142.[address] CTDI: 3.8 mGy Automated exposure control for dose reduction was used. SCREENING VISIT: First COMPARISON: CT chest abdomen pelvis dated 10/15/2019. TECHNIQUE: Low dose computed tomography scan was performed through the chest at 1 mm thick sections a nd reconstructed images in multiple planes at 1 mm and 5 mm thick sections. . The lungs are clear consolidative or interstitial density. There is a 6.5 mm fissural lymph node in the left lung. It was identified in the prior study and is stable. No suspicious nodules or masses a re seen. There is no pleural effusion, pleural thickening or pneumothorax. The great vessels the chest are nor mal and there is no mediastinal, hilar or axillary adenopathy. Limited scanning the upper abdomen reveals cholelithiasis. There is a 2 cm hypodensity in the anterio r segment right lobe of liver which most likely represents a benign cyst or hemangioma. It was presen t on the prior study stable. IMPRESSION: 1. Lung RADS category 2 benign findings. Continue routine screening yearly intervals if this is a hig h risk patient. 2. No acute cardiopulmonary disease.
== END | disposition home or self-care (01) ==
LOC: RADCTMAIN 14:07
PROVIDERS: ATTEND Family Medicine
DX: Z12.2 Encounter for screening for malignant neoplasm of respiratory organs (principal); Z87.891 Personal history of nicotine dependence
CPT/HCPCS: 71271